=== PATIENT | male | born 1965 | race African-American/Black ===

== ENCOUNTER 2017-06-07 11:53 | Emergency (ER) | payer SELFPAY ==
[~2017-06-07] VITALS: Ht 190.5 cm; Wt 91.5 kg
[2017-06-07 11:54] VITALS: BP 136/76; PULSE 82; RESP 16; TEMP 98.4; O2SAT 99
--- NOTE | 2017-06-07 13:01 | RADRPT ---
EXAM DATE/TIME: 06/07/2017 12:35 [place] COMPARISON: No previous studies available for comparison. INDICATIONS : Left shoulder pain; Fall lastnight out of a chair. MEDICAL HISTORY : None. SURGICAL HISTORY : None. ENCOUNTER: Initial ACUITY: 1 day PAIN SCORE: 9/10 LOCATION: Left shoulder. FINDINGS: Multiple view examination of the left shoulder demonstrates no evidence of fracture or dislocation. The glenohumeral and acromioclavicular joints are maintained. There is normal range of motion betwee n internal and external rotation. Bony mineralization is normal. CONCLUSION: 1. No acute findings. Daniel Pritchard MD on June 07, 2017 at 12:56 Board Certified Radiologist. This report was verified electronically.
--- NOTE | 2017-06-07 13:13 | PD ---
HPI Chief Complaint: Injury Time Seen by Provider: 13:06 Travel History International Travel<30 days: No Contact w/Intl Traveler<30days: No Traveled to known affect area: No History of Present Illness HPI 51-year-old male presents for evaluation of shoulder pain. He reports that yesterday he was sitting in a rubber chair and he slipped out of it and fell, landing on his left shoulder. Since then he has had left shoulder pain which is an aching pain worse with range of motion. He reports associated limited range of motion of left shoulder. He denies any numbness or tingling. He denies any other injuries and he has no other complaints at this time. 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 No bruising or soft tissue swelling HEAD: Atraumatic. Normocephalic. EYES: Pupils equal and round. No scleral icterus. No injection or drainage. ENT: No nasal bleeding or discharge. Mucous membranes pink and moist. NECK: Trachea midline. No JVD. CARDIOVASCULAR: Regular rate and rhythm. No murmur appreciated. RESPIRATORY: No accessory muscle use. Clear to auscultation. Breath sounds equal bilaterally. MUSCULOSKELETAL: No obvious deformities. Generalized tenderness to palpation of the left shoulder joint. The patient has limited range of motion of left shoulder actively. 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 Distal sensation, pulses preserved. NEUROLOGICAL: Awake and alert. No obvious cranial nerve deficits. Motor grossly within normal limits. Normal speech. Data Data Last Documented VS Vital Signs Date Time Temp Pulse Resp B/P (MAP) Pulse Ox O2 Delivery O2 Flow Rate FiO2 06/07/17 11:54 98.4 82 16 136/76 (96) 99 Room Air Orders Orders Shoulder, Complete (>2vws) (06/07/17 ) Ed Discharge Order (06/07/17 13:09) Support Splint (06/07/17 13:09) [facility] Medical Decision Making Medical Screen Exam Complete: Yes Emergency Medical Condition: Yes Medical Record Reviewed: Yes Differential Diagnosis Rotator cuff strain, tear, proximal humeral fracture, dislocation, A.C.separation Narrative Course X-ray imaging reveals no acute abnormalities. I suspect rotator cuff pathology. The patient will be given a sling for short-term use. Recommended follow-up with primary care physician for recheck in one to 2 weeks. He is stable for discharge. Diagnosis Primary Impression: Left shoulder strain Additional Instructions: Sling for the next 2-3 days. As discussed, perform passive range of motion activities several times a day in the left shoulder to prevent stiffness. Tylenol or Motrin for pain. Ice pack several times a day 20 minutes at a time. Follow-up with primary care physician in one to 2 weeks. Return for any emergent medical conditions. Med/Other Pt SpecificInfo: Orthopedic Instructions Scripts No Active Prescriptions or Reported Meds Disposition: 01 DISCHARGE HOME Condition: Stable Andrea Bernard Jun 07, 2017 13:13
== END 2017-06-07 13:37 | disposition home or self-care (01) ==
LOC: NEPK 11:53
DX: S46.912A Strain of unspecified muscle, fascia and tendon at shoulder and upper arm level, left arm, initial encounter (principal); W07.XXXA Fall from chair, initial encounter
CPT/HCPCS: 73030; 99283